=== PATIENT | female | born 1985 | race Caucasian/White ===

== ENCOUNTER 2017-10-16 09:48 | Emergency (ER) | payer OTHER ==
[~2017-10-16] VITALS: Ht 180.3 cm; Wt 134.0 kg
[~2017-10-16 09:48] MED LIST: AMOXICILLIN500 MG PO; AMOXICILLIN875 MG OR; AUGMENTIN875TAB PO; AZITHROMYCIN250 MG PO; AZURETTE PO; BENZONATATE200 MG PO; CIPROFLOXACN500 MG PO; FERROUS SU PO; FLEXERIL OR; FLEXERIL PO; IBUPROFEN600 MG PO; KARIVA28 DAY PO; LABETALOL100 MG PO; LORTAB 10-325 M1 TAB PO; LORTAB5 PO; MACRODANTIN100 MG OR; MEDDOSEPAK PO; NAPROSYN500 MG PO; NO; PRE-NATAL PO; PRENATABS OR; ROBAXIN-750750 MG PO; TRAMADOL HCL50 MG OR; ULTRAM50 M1 PO; no home meds
[2017-10-16 10:26] LABS: HEMATOCRIT 39.9 % (37.0-47.0); HEMOGLOBIN 13.2 g/dl (12.0-16.0); IMMATURE GRANULOCYTES 0.3 % (0.0-1.0); MEAN CELL VOLUME 89.7 fL CALC (80.0-100.0); MEAN CORPUSCULAR HGB 29.7 pG CALC (26.0-32.0); MEAN CORPUSCULAR HGB CONC 33.1 g/L CALC (32.0-36.0); NEUT# 4.99 thou/uL (2.00-7.15); RED BLOOD COUNT 4.45 mill/uL (4.20-5.60); RED CELL DISTRI WIDTH 12.9 % (11.5-15.5)
[2017-10-16 10:27] LABS: URINE BILIRUBIN - DIPSTICK NEGATIVE (NEGATIVE); URINE BLOOD DIPSTICK LARGE (NEGATIVE); URINE GLUCOSE - DIPSTICK NEGATIVE (NEGATIVE); URINE KETONE TRACE mg/dL (NEGATIVE); URINE LEUK ESTERASE NEGATIVE (NEGATIVE); URINE NITRITE - DIPSTICK NEGATIVE (Negative); URINE PH 6.5 (4.5-8.0); URINE PROTEIN - DIPSTICK 30 mg/dL (NEG-TRACE); URINE UROBILINOGEN - DIPSTICK 0.2 E.U./dL (0.2)
[2017-10-16 10:28] LABS: URINE CLARITY BLOODY; URINE COLOR RED
[2017-10-16 10:35] LABS: URINE RBC >100 RBC/hpf (0-5)
[2017-10-16 10:51] LABS: ALBUMIN 4.2 g/dL (3.2-5.0); ALKALINE PHOSPHATASE 47 u/l (38-126); ANION GAP 17 (6-22 (CALC)); BILIRUBIN, TOTAL 0.8 mg/dL (0.0-1.4); BUN 12 mg/dL (7-17); BUN/CREATININE RATIO 13 (12-20 (CALC)); CARBON DIOXIDE 22 mmol/l (22-30); CHLORIDE 106 mmol/l (95-108); CREATININE 0.9 mg/dL (0.5-1.0); GFR > 60 ML/MIN (>=60 (CALC)); GFR FOR AFR.AMER. > 60 ML/MIN (>=60 (CALC)); POTASSIUM 4.3 mmol/l (3.5-5.1); SGOT/AST 23 u/l (14-36); SGPT/ALT 30 u/l (9-52); SODIUM 141 mmol/l (137-146); TOTAL PROTEIN 7.1 g/dL (6.3-8.2)
[2017-10-16 11:07] LABS: BETA-HCG, QUANT(RESULT NUMBER) 3229 mIU/mL
[2017-10-16 12:24] VITALS: BP 131/75
== END 2017-10-16 12:25 | disposition short-term general hospital (02) | DRG 782 ==
LOC: ED 09:48
PROVIDERS: Family Medicine
DX: O46.91 Antepartum hemorrhage, unspecified, first trimester (principal); Z3A.01 Less than 8 weeks gestation of pregnancy

== ENCOUNTER 2017-11-09 15:08 | Emergency (ER) | payer OTHER ==
[~2017-11-09] VITALS: Ht 180.3 cm; Wt 134.0 kg
[2017-11-09 16:40] VITALS: BP 149/81
[2017-11-09] MEDS ORDERED: LIDODERM5 % TD (16:43)
== END 2017-11-09 16:40 | disposition home or self-care (01) | DRG 552 ==
LOC: ED 15:08
DX: M54.5 Low back pain (principal)

== ENCOUNTER → 2018-06-16 | Outpatient (REF) | payer OTHER ==
[~2018-06-16] MED LIST changes: +LIDODERM5 % TD
== END | disposition home or self-care (01) ==
LOC: ULTRASND 12:47
PROVIDERS: ATTEND Obstetrics & Gynecology
DX: Z34.83 Encounter for supervision of other normal pregnancy, third trimester (principal); O28.3 Abnormal ultrasonic finding on antenatal screening of mother

== ENCOUNTER 2023-04-25 04:45 | Emergency (ER) | payer OTHER ==
[~2023-04-25] VITALS: Ht 177.8 cm; Wt 131.0 kg
[2023-04-25] VITALS (9 sets, daily range): BP systolic 113–147; BP diastolic 67–91
[~2023-04-25 04:45] MED LIST changes: +BUPROPION HCL150 MG PO; +LORTAB 1010 MG PO; +METHOCARBAMOL750 MG PO; +NEURONTIN300 MG PO; +ONDANSETRON HCL8 MG PO
[2023-04-25 05:40] LABS: BASO% 0.4 % (0-3); EOS% 1.1 % (0-8); HEMOGLOBIN 13.2 g/dl (12.0-16.0); IMMATURE GRANULOCYTES 0.3 % (0.0-5.0); LYMPH% 32.4 % (15-41); MEAN CELL VOLUME 91.2 fL CALC (80.0-100.0); MEAN CORPUSCULAR HGB 29.8 pG CALC (26.0-32.0); MEAN CORPUSCULAR HGB CONC 32.7 g/dL CAL (32.0-36.0); MONO% 7.3 % (2-13); NEUT# 4.3 thou/uL (2.00-7.15); NEUT% 58.5 % (42-76); RED BLOOD COUNT 4.43 mill/uL (4.20-5.60); RED CELL DISTRI WIDTH 13.1 % (11.5-15.5)
[2023-04-25 05:46] LABS: HEMATOCRIT 40.4 % (37.0-47.0)
[2023-04-25 05:51] LABS: ALBUMIN 4.1 g/dL (3.2-5.0); ALKALINE PHOSPHATASE 52 u/l (38-126); ANION GAP 11 (6-22 (CALC)); BUN 18 mg/dL (7-17); BUN/CREATININE RATIO 23 (12-20 (CALC)); CARBON DIOXIDE 25 mmol/l (22-30); CHLORIDE 107 mmol/l (95-108); CREATININE 0.8 mg/dL (0.5-1.0); GFR FOR AFR.AMER. > 60 ML/MIN (>=60 (CALC)); GFR OTHER RACES > 60 ML/MIN (>=60 (CALC)); LIPASE 72 u/l (23-300); POTASSIUM 4.1 mmol/l (3.5-5.1); SGOT/AST 45 u/l (14-36); SODIUM 139 mmol/l (137-146); TOTAL PROTEIN 7.4 g/dL (6.3-8.2)
[2023-04-25 05:52] LABS: BILIRUBIN, TOTAL 0.8 mg/dL (0.02-1.3)
[2023-04-25 07:35] LABS: URINE BILIRUBIN - DIPSTICK Negative (NEGATIVE); URINE BLOOD DIPSTICK Negative (NEGATIVE); URINE GLUCOSE - DIPSTICK Negative (NEGATIVE); URINE KETONE Negative (NEGATIVE); URINE LEUK ESTERASE Negative (NEGATIVE); URINE NITRITE - DIPSTICK Negative (Negative); URINE PH 5.5 (4.5-8.0); URINE PROTEIN - DIPSTICK Negative (NEG-TRACE)
[2023-04-25 07:38] LABS: URINE COLOR Yellow
== END 2023-04-25 08:45 | disposition home or self-care (01) ==
LOC: ED 04:45
PROVIDERS: Internal Medicine
DX: R10.12 Left upper quadrant pain (principal); R10.11 Right upper quadrant pain
CPT/HCPCS: Q9967

== ENCOUNTER 2024-09-01 06:22 | Emergency (ER) | payer SELFPAY ==
[~2024-09-01] VITALS: Ht 177.8 cm; Wt 140.0 kg
[2024-09-01] MEDS ORDERED: guaiFENesin-CODEINE 200-20 MG/10 ML UDC PO ONE (06:35)
[2024-09-01] MEDS ORDERED: TAM75CAP PO (07:35)
[2024-09-01 07:40] VITALS: BP 136/79
[2024-09-01 07:41] VITALS: BP 136/79
== END 2024-09-01 07:40 | disposition home or self-care (01) | DRG 195 ==
LOC: ED 06:22
DX: J10.1 Influenza due to other identified influenza virus with other respiratory manifestations (principal); Z20.822 Contact with and (suspected) exposure to COVID-19